=== PATIENT | female | born 1955 | race African-American/Black ===

== ENCOUNTER → 2016-05-11 | Outpatient (CLI) | payer OTHER | END | disposition home or self-care (01) | LOC: SMA 05-05 15:32 | PROVIDERS: ATTEND Family Medicine | DX: N63 Unspecified lump in breast (principal); R92.1 Mammographic calcification found on diagnostic imaging of breast | CPT/HCPCS: G0204; G0206 ==

== ENCOUNTER 2016-11-23 08:46 | Outpatient (CLI) | payer OTHER | END 2016-11-23 21:03 | disposition home or self-care (01) | LOC: SMA 08:46 | PROVIDERS: ATTEND Family Medicine | DX: N63 Unspecified lump in breast (principal); R92.1 Mammographic calcification found on diagnostic imaging of breast | CPT/HCPCS: G0204 ==

== ENCOUNTER 2017-12-07 09:08 | Outpatient (CLI) | payer OTHER | END 2017-12-07 19:26 | disposition home or self-care (01) | LOC: SMA 09:08 | PROVIDERS: ATTEND Family Medicine | DX: Z12.31 Encounter for screening mammogram for malignant neoplasm of breast (principal) | CPT/HCPCS: 77067 ==

== ENCOUNTER 2018-12-10 09:16 | Outpatient (CLI) | payer OTHER | END 2018-12-10 20:05 | disposition home or self-care (01) | LOC: SMA 09:16 | PROVIDERS: ATTEND Family Medicine | DX: Z12.31 Encounter for screening mammogram for malignant neoplasm of breast (principal); R92.1 Mammographic calcification found on diagnostic imaging of breast | CPT/HCPCS: 77067 ==